=== PATIENT | female | born 1985 | race Caucasian/White ===

== ENCOUNTER 2017-04-07 12:52 | Emergency (ER) | payer BC, OTHER ==
[~2017-04-07] VITALS: Ht 157.5 cm; Wt 71.7 kg
[~2017-04-07 12:52] MED LIST: NAPR220T66 PO
[2017-04-07] MEDS ORDERED: ESCI20TA PO (13:02)
[2017-04-07 13:49] LABS: *BILIRUBIN,URIN NEGATIVE (NEGATIVE); *BLOOD, URINE NEGATIVE (NEGATIVE); *CLARITY,URINE CLOUDY (CLEAR); *COLOR,URINE LIGHT YELLOW (YELLOW); *KETONES,URINE NEGATIVE (NEGATIVE); *PROTEIN,URINE NEGATIVE (NEGATIVE); *UROBILINOGEN,URINE 0.2 E.U./dl (NORMAL); LEUKOCYTE ESTERASE ,URINE 2+ (NEGATIVE); NITRITE, URINE NEGATIVE (NEGATIVE); UGLUCOSE NEGATIVE (NEGATIVE)
[2017-04-07 13:55] LABS: *URINE HCG, QUAL NEGATIVE (NEGATIVE)
[2017-04-07 14:02] LABS: BACTERIA,URINE MODERATE /HPF (NONE SEEN); SQUAMOUS EPITHELIAL CELL,UR MANY /HPF (NONE SEEN); WBC,URINE 50-80 /HPF (0-3)
[2017-04-07 14:03] LABS: YEAST,URINE FEW /HPF (NONE SEEN)
[2017-04-07 14:07] LABS: BASOPHILS % (AUTO) 0.3 % (0.0-2.0); EOSINOPHILS # (AUTO) 0.1 K/uL (0.0-0.7); EOSINOPHILS % (AUTO) 0.8 % (0.0-7.0); HEMATOCRIT 37.3 % (37-47); HEMOGLOBIN 12.4 G/DL (12.0-16.0); LYMPHOCYTES # (AUTO) 2.2 K/UL (0.8-4.8); LYMPHOCYTES % (AUTO) 28.2 % (20.5-51.5); MEAN CORPUSCULAR HEMOGLOBIN 26.3 UUG (27.0-31.0); MEAN CORPUSCULAR HGB CONC 33 g/dL (32.0-37.0); MEAN CORPUSCULAR VOLUME 78.9 FL (81.0-99.0); MONOCYTES # (AUTO) 0.4 K/UL (0.1-1.30); MONOCYTES % (AUTO) 5.3 % (0.0-11.0); NEUTROPHILS % (AUTO) 65.4 % (38.5-71.5); PLATELET COUNT (AUTO) 271 K/UL (150-450); RED BLOOD CELL COUNT(AUTO) 4.73 MIL/UL (4.2-5.4); WHITE BLOOD COUNT (AUTO) 7.7 K/UL (4.0-11.2)
[2017-04-07 14:24] LABS: BILIRUBIN,TOTAL 0.6 mg/dL (0.2-1.0); CREATININE 0.7 mg/dL (0.6-1.3); POTASSIUM 3.4 mmol/L (3.5-5.1); TOTAL PROTEIN, SERUM 7.5 g/dL (6.4-8.2)
[2017-04-07] MEDS ORDERED: CEFTRIAXONE 1 G in IV DEXTROSE 5% 50 ML IV ONE (14:45)
[2017-04-07] MEDS ORDERED: CEFTRIAXONE 1 G VIAL ONE (15:01)
--- NOTE | 2017-04-07 15:35 | NUR ---
Patient discharged to home in stable conditon. Written and verbal after care instructions given. Patient verbalizes understanding of instructions.PT WALKS IN STEADY GAIT. Addendum: 04/07/17 at 1537 by GLENNY PT SAYS FEELS BETTER.
[2017-04-07 15:36] VITALS: BP 119/69
== END 2017-04-07 15:37 | disposition home or self-care (01) ==
LOC: ER 12:52
DX: N39.0 Urinary tract infection, site not specified (principal); R00.2 Palpitations; T43.615A Adverse effect of caffeine, initial encounter; F10.20 Alcohol dependence, uncomplicated; G43.909 Migraine, unspecified, not intractable, without status migrainosus; F41.9 Anxiety disorder, unspecified; Z88.0 Allergy status to penicillin; Z88.1 Allergy status to other antibiotic agents; Y92.89 Other specified places as the place of occurrence of the external cause
CPT/HCPCS: 36415; 71010; 80053; 81001; 82550; 84484; 84703; 85025; 93005; 96365; 99285; A4663; J0696; J3490; 70030-TC

== ENCOUNTER 2017-06-29 07:40 | Emergency (ER) | payer BC, OTHER ==
[~2017-06-29] VITALS: Ht 160 cm; Wt 64.0 kg
[~2017-06-29 07:40] MED LIST changes: +ESCI20TA PO; -NAPR220T66 PO
[2017-06-29] MEDS ORDERED: MAG HYDROX/AL HYDROX/SIMETH 30 ML LIQUID UDC PO ONE (08:45)
[2017-06-29] MEDS ORDERED: LIDOCAINE VISCUS 2% 15 ML UDC MM ONE (08:45)
[2017-06-29] MEDS ORDERED: PANTOPRAZOLE SODIUM 40 MG VIAL IV ONE (08:45)
[2017-06-29] MEDS ORDERED: ONDANSETRON 4 MG/2 ML VIAL IV ONE (08:45)
[2017-06-29] MEDS ORDERED: IV NORMAL SALINE 1000 ML BAG IV ONE (08:45)
[2017-06-29] MEDS ORDERED: MAG HYDROX/AL HYDROX/SIMETH 30 ML LIQUID UDC ONE (08:49)
[2017-06-29] MEDS ORDERED: ONDANSETRON 4 MG/2 ML VIAL ONE (08:50)
[2017-06-29] MEDS ORDERED: PANTOPRAZOLE SODIUM 40 MG VIAL ONE (08:50)
[2017-06-29] MEDS ORDERED: LIDOCAINE VISCUS 2% 15 ML UDC ONE (08:50)
[2017-06-29 08:51] LABS: BASOPHILS % (AUTO) 0.4 % (0.0-2.0); CREATININE 0.9 mg/dL (0.6-1.3); EOSINOPHILS # (AUTO) 0.1 K/uL (0.0-0.7); EOSINOPHILS % (AUTO) 1.3 % (0.0-7.0); HEMATOCRIT 42.7 % (37-47); HEMOGLOBIN 13.5 G/DL (12.0-16.0); LYMPHOCYTES # (AUTO) 2.1 K/UL (0.8-4.8); LYMPHOCYTES % (AUTO) 28.5 % (20.5-51.5); MEAN CORPUSCULAR HEMOGLOBIN 25.5 UUG (27.0-31.0); MEAN CORPUSCULAR HGB CONC 32 g/dL (32.0-37.0); MEAN CORPUSCULAR VOLUME 80.6 FL (81.0-99.0); MONOCYTES # (AUTO) 0.3 K/UL (0.1-1.30); MONOCYTES % (AUTO) 4.7 % (0.0-11.0); NEUTROPHILS # (AUTO) 4.8 K/UL (1.8-8.9); NEUTROPHILS % (AUTO) 65.1 % (38.5-71.5); PLATELET COUNT (AUTO) 262 K/UL (150-450); POTASSIUM 3.5 mmol/L (3.5-5.1); WHITE BLOOD COUNT (AUTO) 7.3 K/UL (4.0-11.2)
[2017-06-29 08:56] LABS: BILIRUBIN,DIRECT 0.3 mg/dL (0.0-0.2); BILIRUBIN,TOTAL 1.7 mg/dL (0.2-1.0); TOTAL PROTEIN, SERUM 8.7 g/dL (6.4-8.2)
[2017-06-29] MEDS ORDERED: MORPHINE SULFATE 2 MG/1 ML DISP.SYRIN IV ONE (09:45)
[2017-06-29] MEDS ORDERED: MORPHINE SULFATE 2 MG/1 ML DISP.SYRIN ONE (09:51)
[2017-06-29 10:39] LABS: *URINE HCG, QUAL NEGATIVE (NEGATIVE)
--- NOTE | 2017-06-29 11:29 | NUR ---
IV removed. Catheter intact and site benign. Pressure and 4x4 gauze applied to site. No bleeding noted.
--- NOTE | 2017-06-29 11:29 | NUR ---
Patient discharged to home in stable conditon with family. Written and verbal after care instructions given. Patient verbalizes understanding of instructions. Stressed follow up with pmd.
== END 2017-06-29 11:30 | disposition home or self-care (01) ==
LOC: ER 07:40
DX: K29.70 Gastritis, unspecified, without bleeding (principal); F17.200 Nicotine dependence, unspecified, uncomplicated; Z88.0 Allergy status to penicillin; Z88.1 Allergy status to other antibiotic agents; Z88.2 Allergy status to sulfonamides
CPT/HCPCS: 36415; 83690; 84703; 85025; A4663; C9113; J2270; J2405; J7030

== ENCOUNTER 2017-07-26 10:35 | Emergency (ER) | payer BC, OTHER ==
[~2017-07-26] VITALS: Ht 157.5 cm; Wt 70.3 kg
[2017-07-26] MEDS ORDERED: PANTOPRAZOLE SOD DR 40 MG TAB PO (10:46)
--- NOTE | 2017-07-26 10:56 | NUR ---
Dr Mcmahon at the bedside for eval and exam.
[2017-07-26 11:06] VITALS: BP 111/77
--- NOTE | 2017-07-26 11:06 | NUR ---
Patient discharged to home in stable conditon. Written and verbal after care instructions given. Patient verbalizes understanding of instructions. pt left ER w/ steady gait.
== END 2017-07-26 11:07 | disposition home or self-care (01) ==
LOC: ER 10:35
DX: G89.29 Other chronic pain (principal); M54.5 Low back pain; Z88.0 Allergy status to penicillin; Z88.2 Allergy status to sulfonamides; F17.200 Nicotine dependence, unspecified, uncomplicated; G43.909 Migraine, unspecified, not intractable, without status migrainosus
CPT/HCPCS: 99283; A4663

== ENCOUNTER 2018-03-03 12:05 | Emergency (ER) | payer BC, OTHER ==
[~2018-03-03] VITALS: Ht 157.5 cm; Wt 59.0 kg
[~2018-03-03 12:05] MED LIST changes: -ESCI20TA PO; +PANTOPRAZOLE SOD DR 40 MG TAB PO
--- NOTE | 2018-03-03 13:02 | NUR ---
Patient discharged to home in stable conditon. Written and verbal after care instructions given. Patient verbalizes understanding of instructions.PT WALKS IN STEADY GAIT.
== END 2018-03-03 13:04 | disposition home or self-care (01) ==
LOC: ER 12:08
DX: G89.29 Other chronic pain (principal); M54.5 Low back pain; F17.210 Nicotine dependence, cigarettes, uncomplicated; Z88.0 Allergy status to penicillin; Z88.8 Allergy status to other drugs, medicaments and biological substances; Z88.2 Allergy status to sulfonamides; Z79.899 Other long term (current) drug therapy
CPT/HCPCS: A4663